=== PATIENT | male | born 1950 | race Caucasian/White ===

== ENCOUNTER 2016-11-29 09:07 | Emergency (ER) | payer OTHER ==
[~2016-11-29] VITALS: Ht 182.9 cm; Wt 124.0 kg
[~2016-11-29 09:07] MED LIST: AMLO5TAB96 PO; CYCL5TAB PO; GLYB1TAB51 PO; MELO15TA2 PO; MEVA40TA6 PO; NOVOLOGP2 SC; PRIN20TA2 PO; TRIA37.512 PO; VERA40TA PO
[2016-11-29 09:14] VITALS: BP 174/96; PULSE 85; RESP 16; TEMP 98.3; O2SAT 100
--- NOTE | 2016-11-29 09:16 | PD ---
HPI . back pain and numbness in legs x this am Chief Complaint: back pain and numbness in legs Time Seen by Provider: 09:10 Travel History International Travel<30 days: No Contact w/Intl Traveler<30days: No Traveled to known affect area: No History of Present Illness HPI 66-year-old male with past medical history of hypertension, hyperlipidemia, GERD , diabetes and chronic back pain who [facility] showing severe osteoarthritis and deteriorating disc here with complaints of low back pain and numbness in his legs. Patient tells me that occasionally he'll experience intermittent numbness in his lower extremities, however usually resolves within minutes. This time the numbness has been lingering. He tells me that he does not have any bowel or bladder dysfunction, however he is not certain if he needs to use the bathroom or not. Times daily and took one this morning. He is still rating his pain as 9/10 without radiation other than in the lower back. Patient was brought in via [facility] because he was unsteady at home. He tells me that he feels when he is walking he is likely going to fall. He has not fallen. PFSH Past Medical History Arthritis: Yes High Cholesterol: Yes Diabetes: Yes Hypertension: Yes Past Surgical History Appendectomy: Yes Tonsillectomy: Yes Social History Alcohol Use: Yes (occ) Tobacco Use: No Substance Use: No Allergies-Medications (Allergen,Severity, Reaction): Coded Allergies: Ebcdint-Ksu-Iaj Reductase Inhibitor (Verified Allergy, Severe, RHABDOMYLASIS, 11/29/16) Reported Meds & Prescriptions Reported Meds & Active Scripts Active Reported Aspirin 81 Low Dose (Aspirin) 81 Mg Chew 81 Mg PO DAILY Multiple Vitamin 1 Tab 1 Tab PO DAILY Vitamin D (Cholecalciferol) 400 Unit/Ml Drops 400 Units PO DAILY Ferrous Sulfate 325 Mg (65 Mg Iron) Tablet 325 Mg PO DAILY Saw [employer] 80 Mg Capsule Unknown Dose PO Q6HR Vitamin B Complex (B-Complex Vitamins) 1 Tab Unknown Dose PO DAILY Mobic (Meloxicam) 15 Mg Tab 15 Mg PO DAILY Baclofen 10 Mg Tab 10 Mg PO TID Tramadol Hydrochloride (Tramadol HCl) 50 Mg Tab 50 Mg PO Q6HR Eql Acid Adzing And Boring Machine Helper (Ranitidine HCl) 75 Mg Tab 150 Mg PO BID Omeprazole 40 Mg Cap 40 Mg PO HS Lisinopril 40 Mg Tab 40 Mg PO BID Novolin N Inj (Insulin Human NPH) 1,000 Unit/10 Ml Vial 17 Units SQ HS Hydrochlorothiazide 25 Mg Tab 25 Mg PO DAILY Hydralazine (Hydralazine HCl) 100 Mg Tab 10 Mg PO BID Take with meals Glipizide 10 Mg Tab 10 Mg PO BIDAC Take 30 minutes before a meal Amlodipine (Amlodipine Besylate) 10 Mg Tab 10 Mg PO DAILY Allopurinol 100 Mg Tab 100 Mg PO DAILY Review of Systems General / Constitutional: No: Fever Eyes: No: Visual changes HENT: No: Headaches Cardiovascular: No: Chest Pain or Discomfort Respiratory: No: Shortness of Breath Gastrointestinal: No: Abdominal Pain Genitourinary: No: Dysuria Musculoskeletal: Positive: Pain (lower back) Skin: No Rash Neurologic: Positive: Paresthesia, No: Weakness Psychiatric: No: Depression Endocrine: No: Polydipsia Hematologic/Lymphatic: No: Easy Bruising Physical Exam Narrative GENERAL: AAO x 3, no acute distress, Well-nourished, well-developed patient. obese SKIN: Warm and dry. No visible rashes or bruising. HEAD: Normocephalic and atraumatic. EYES: No scleral icterus. No injection or drainage. EOM intact, ENT: No nasal drainage noted. Mucous membranes pink. Airway patent. NECK: Supple, trachea midline. No JVD. no c spine tenderness CARDIOVASCULAR: Regular rate and rhythm without murmurs, gallops, or rubs. RESPIRATORY: Breath sounds equal bilaterally. No accessory muscle use. No rhonchi or rales. GASTROINTESTINAL: Abdomen soft, non-tender, nondistended. EXTREMITIES: No cyanosis or edema. BACK: No obvious deformity. 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 Data Data Last Documented VS Vital Signs Date Time Temp Pulse Resp B/P Pulse Ox O2 Delivery O2 Flow Rate FiO2 11/29/16 10:54 77 17 135/84 98 Room Air 11/29/16 09:14 98.3 Orders Mri L Spine W/O Contrast (11/29/16 09:17) Ketorolac Inj (Toradol Inj) (11/29/16 09:30) Complete Blood Count With Diff (11/29/16 09:17) Basic Metabolic Panel (Bmp) (11/29/16 09:17) Coag Profile (11/29/16 09:17) Urinalysis - C+S If Indicated (11/29/16 09:17) Labs Laboratory Tests Test 11/29/16 09:30 White Blood Count 7.5 TH/MM3 Red Blood Count 4.77 MIL/MM3 Hemoglobin 13.9 GM/DL Hematocrit 39.5 % Mean Corpuscular Volume 82.8 FL Mean Corpuscular Hemoglobin 29.1 PG Mean Corpuscular Hemoglobin 35.1 % Concent Red Cell Distribution Width 14.0 % Platelet Count 235 TH/MM3 Mean Platelet Volume 8.2 FL Neutrophils (%) (Auto) 61.8 % Lymphocytes (%) (Auto) 23.8 % Monocytes (%) (Auto) 8.9 % Eosinophils (%) (Auto) 4.8 % Basophils (%) (Auto) 0.7 % Neutrophils # (Auto) 4.6 TH/MM3 Lymphocytes # (Auto) 1.8 TH/MM3 Monocytes # (Auto) 0.7 TH/MM3 Eosinophils # (Auto) 0.4 TH/MM3 Basophils # (Auto) 0.1 TH/MM3 CBC Comment DIFF FINAL Differential Comment Prothrombin Time 10.7 SEC Prothromb Time International 1.0 RATIO Ratio Activated Partial 26.7 SEC Thromboplast Time Urine Color YELLOW Urine Turbidity CLEAR Urine pH 5.5 Urine Specific [place] 1.014 Urine Protein NEG mg/dL Urine Glucose (UA) NEG mg/dL Urine Ketones NEG mg/dL Urine Occult Blood NEG Urine Nitrite NEG Urine Bilirubin NEG Urine Urobilinogen LESS THAN 2.0 MG/DL Urine Leukocyte Esterase NEG Urine WBC 1 /hpf Microscopic Urinalysis Comment CULT NOT INDICATED Sodium Level 138 MEQ/L Potassium Level 3.9 MEQ/L Chloride Level 106 MEQ/L Carbon Dioxide Level 24.7 MEQ/L Anion Gap 7 MEQ/L Blood Urea Nitrogen 19 MG/DL Creatinine 1.29 MG/DL Estimat Glomerular Filtration 56 ML/MIN Rate Random Glucose 169 MG/DL Calcium Level 8.4 MG/DL [facility] Medical Decision Making Medical Screen Exam Complete: Yes Emergency Medical Condition: Yes Medical Record Reviewed: Yes Differential Diagnosis lumbar radiculopathy, spinal stenosis, less likely epidural abscess, cauda equina Narrative Course 66-year-old male here with complaints of lower back pain and numbness to his bilateral lower extremities. On examination he has some significant tenderness to the L-spine. He has had a recent MRI, however with significant findings today, we'll go and check another MRI. Provide him with a shot of Toradol here in the emergency department. Labs have been ordered in case emergent surgical indication on MRI. Last Impressions Lumbar Spine MRI 11/29/16 0917 Signed Impressions: Service Date/Time: Thursday, November 29, 2016 10:25 - CONCLUSION: 1. Protrusions at L2-3, L3-4 and L4-5 levels causing severe canal stenosis. 2. Diffuse facet arthropathy and scattered neural from narrowing as described above. Arnulfo Mccann MD Laboratory Tests Test 11/29/16 09:30 White Blood Count 7.5 TH/MM3 Red Blood Count 4.77 MIL/MM3 Hemoglobin 13.9 GM/DL Hematocrit 39.5 % Mean Corpuscular Volume 82.8 FL Mean Corpuscular Hemoglobin 29.1 PG Mean Corpuscular Hemoglobin 35.1 % Concent Red Cell Distribution Width 14.0 % Platelet Count 235 TH/MM3 Mean Platelet Volume 8.2 FL Neutrophils (%) (Auto) 61.8 % Lymphocytes (%) (Auto) 23.8 % Monocytes (%) (Auto) 8.9 % Eosinophils (%) (Auto) 4.8 % Basophils (%) (Auto) 0.7 % Neutrophils # (Auto) 4.6 TH/MM3 Lymphocytes # (Auto) 1.8 TH/MM3 Monocytes # (Auto) 0.7 TH/MM3 Eosinophils # (Auto) 0.4 TH/MM3 Basophils # (Auto) 0.1 TH/MM3 CBC Comment DIFF FINAL Differential Comment Prothrombin Time 10.7 SEC Prothromb Time International 1.0 RATIO Ratio Activated Partial 26.7 SEC Thromboplast Time Urine Color YELLOW Urine Turbidity CLEAR Urine pH 5.5 Urine Specific [place] 1.014 Urine Protein NEG mg/dL Urine Glucose (UA) NEG mg/dL Urine Ketones NEG mg/dL Urine Occult Blood NEG Urine Nitrite NEG Urine Bilirubin NEG Urine Urobilinogen LESS THAN 2.0 MG/DL Urine Leukocyte Esterase NEG Urine WBC 1 /hpf Microscopic Urinalysis Comment CULT NOT INDICATED Sodium Level 138 MEQ/L Potassium Level 3.9 MEQ/L Chloride Level 106 MEQ/L Carbon Dioxide Level 24.7 MEQ/L Anion Gap 7 MEQ/L Blood Urea Nitrogen 19 MG/DL Creatinine 1.29 MG/DL Estimat Glomerular Filtration 56 ML/MIN Rate Random Glucose 169 MG/DL Calcium Level 8.4 MG/DL Discussed the results with the patient. [facility]. I advised that he may have to proceed with surgical repair, but on outpatient basis. His numbness is improved, but still somewhat present. He has no bowel or bladder dysfunction. He uses a walker at home and his who is present says he is able to ambulate with walker. Patient also tells me he can. Resume home meds. Case discussed with my attending Dr. Ramos. We both agree on outpatient f/u. Patient verbalized understanding of instructions, questions were answered, and thanked me for their care. I advised them if their condition worsens, please return to the nearest emergency room for further care. Diagnosis Primary Impression: Spinal stenosis Qualified Code: M48.06 - Spinal stenosis of lumbar region Referrals: Neurosurgeon [place] [facility] Patient Instructions: General Instructions Additional Instructions: Resume your home medications as prescribed. Med/Other Pt SpecificInfo: No Change to Meds Disposition: 01 DISCHARGE HOME Condition: Stable Rosa Bacon Nov 29, 2016 09:16
[2016-11-29 09:17] VITALS: BP 174/96; PULSE 73; RESP 16; O2SAT 100
[2016-11-29] MEDS ORDERED: KETOROLAC TROMETHAMINE 60 MG/2 ML (IM) VIAL IM ONE (09:30)
[2016-11-29 09:42] LABS: BLOOD, URINE NEG (NEG); GLUCOSE,URINE NEG (NEG); KETONE, URINE NEG (NEG); NITRITE,URINE NEG (NEG); PH, URINE 5.5 (5.0-8.5); URINE COLOR YELLOW (YELLW/STRAW)
[2016-11-29] MEDS ORDERED: ASPI81CH3 PO (09:44)
[2016-11-29] MEDS ORDERED: AMLO10TA2 PO (09:44)
[2016-11-29] MEDS ORDERED: NOVONP2 SQ (09:44)
[2016-11-29] MEDS ORDERED: GLIP10TA6 PO (09:44)
[2016-11-29] MEDS ORDERED: ALLO100T PO (09:44)
[2016-11-29] MEDS ORDERED: HYDR25TA5 PO (09:44)
[2016-11-29] MEDS ORDERED: [UNRECOGNIZED DRUG - CODE] PO (09:44)
[2016-11-29] MEDS ORDERED: SAW80CAP2 PO (09:44)
[2016-11-29] MEDS ORDERED: HYDR-3801 PO (09:44)
[2016-11-29] MEDS ORDERED: CHOL400D2 PO (09:44)
[2016-11-29] MEDS ORDERED: TRAM-492 PO (09:44)
[2016-11-29] MEDS ORDERED: MULTTAB67 PO (09:44)
[2016-11-29] MEDS ORDERED: LISI40TA PO (09:44)
[2016-11-29] MEDS ORDERED: OMEP40CA2 PO (09:44)
[2016-11-29] MEDS ORDERED: MOBI15TA PO (09:44)
[2016-11-29] MEDS ORDERED: VITATAB11 PO (09:44)
[2016-11-29] MEDS ORDERED: BACL10TA PO (09:44)
[2016-11-29] MEDS ORDERED: FERR325T8 PO (09:44)
[2016-11-29 09:45] LABS: COMMENT (UR) CULT NOT INDICATED; CULTURE IF INDICATED CULT NOT INDICATED
[2016-11-29 09:46] LABS: AUTOMATED NEUTROPHIL # 4.6 TH/MM3 (1.8-7.7); BASOPHIL # 0.1 TH/MM3 (0-0.2); BASOPHIL % 0.7 % (0.0-2.0); EOSINOPHIL # 0.4 TH/MM3 (0-0.4); EOSINOPHIL % 4.8 % (0.0-4.0); HEMATOCRIT 39.5 % (39.0-51.0); HEMO FLAGS DIFF FINAL; LYMPH % 23.8 % (9.0-44.0); LYMPHOCYTE # 1.8 TH/MM3 (1.0-4.8); MEAN CELL VOLUME 82.8 FL (80.0-100.0); MEAN CORPUSCULAR HEMOGLOBIN 29.1 PG (27.0-34.0); MEAN CORPUSCULAR HGB CONC 35.1 % (32.0-36.0); MONO % 8.9 % (0.0-8.0); NEUT % 61.8 % (16.0-70.0); PLATELET COUNT 235 TH/MM3 (150-450); RED BLOOD COUNT 4.77 MIL/MM3 (4.50-5.90); WHITE BLOOD COUNT 7.5 TH/MM3 (4.0-11.0)
[2016-11-29 09:54] LABS: PROTHROMBIN TIME - PATIENT 10.7 SEC (9.8-11.6)
[2016-11-29 09:55] LABS: APTT (PATIENT) 26.7 SEC (24.3-30.1)
[2016-11-29 10:08] LABS: BICARBONATE 24.7 MEQ/L (21.0-32.0); POTASSIUM 3.9 MEQ/L (3.5-5.1)
[2016-11-29 10:54] VITALS: BP 135/84; PULSE 77; RESP 17; O2SAT 98
--- NOTE | 2016-11-29 10:57 | RADRPT ---
EXAM DATE/TIME: 11/29/2016 10:25 [place] COMPARISON: No previous studies available for comparison. INDICATIONS : Bilateral lower extremity weakness. MEDICAL HISTORY : Hypertension. Diabetes mellitus type 2. SURGICAL HISTORY : Tonsillectomy. Appendectomy. Right foot. ENCOUNTER: Initial ACUITY: 1 week PAIN SCORE: 5/10 LOCATION: [facility] TECHNIQUE: Multiplanar multisequence MRI of the lumbar spine was performed without contrast. FINDINGS: The most caudal appearing lumbar vertebra is numbered as L5. VERTEBRAE: Homogeneous signal. Normal alignment. CONUS: Normal level and configuration. Right renal cyst. T12-L1: The thecal sac has a normal diameter. No evidence of disc bulge or protrusion. The neural foramina are patent bilaterally. L1-L2: The thecal sac has a normal diameter. No evidence of disc bulge or protrusion. The neural foramina are patent bilaterally. L2-L3: Asymmetric right-sided moderate broad-based protrusion abuts the ventral thecal sac and in conjunctio n with marked facet arthropathy which contains fluid causes severe canal stenosis. Moderate narrowing of the right neural foramen. Left neural foramen is patent. L3-L4: Moderate broad-based protrusion in conjunction with moderate facet arthropathy causes severe canal st enosis. Severe bilateral neural foraminal narrowing greater on the left . L4-L5: Moderate broad-based protrusion in conjunction with moderate facet arthropathy causes severe canal st enosis. Severe bilateral neural foraminal narrowing greater on the left . L5-S1: Mild broad-based disc bulge without canal stenosis. Moderate facet arthropathy. The neural foramina are patent bilaterally. CONCLUSION: 1. Protrusions at L2-3, L3-4 and L4-5 levels causing severe canal stenosis. 2. Diffuse facet arthropathy and scattered neural from narrowing as described above. Arnulfo Mccann MD on November 29, 2016 at 10:52 Board Certified Radiologist. This report was verified electronically.
== END 2016-11-29 11:16 | disposition home or self-care (01) ==
LOC: NEPD 09:07
DX: M48.06 Spinal stenosis, lumbar region (principal); R20.9 Unspecified disturbances of skin sensation; E11.9 Type 2 diabetes mellitus without complications; I10 Essential (primary) hypertension; Z79.82 Long term (current) use of aspirin; Z79.4 Long term (current) use of insulin
CPT/HCPCS: 72148; 80048; 81001; 85025; 85610; 85730; 96372; 99285; J1885

== ENCOUNTER 2017-02-01 10:33 | Emergency (ER) | payer MEDICARE, OTHER ==
[~2017-02-01] VITALS: Ht 182.9 cm; Wt 122.0 kg
[~2017-02-01 10:33] MED LIST changes: +ALLO100T PO; +AMLO10TA2 PO; -AMLO5TAB96 PO; +ASPI81CH3 PO; +BACL10TA PO; +CHOL400D2 PO; -CYCL5TAB PO; +FERR325T8 PO; +GLIP10TA6 PO; -GLYB1TAB51 PO; +HYDR-3801 PO; +HYDR25TA5 PO; +LISI40TA PO; -MELO15TA2 PO; -MEVA40TA6 PO; +MOBI15TA PO; +MULTTAB67 PO; -NOVOLOGP2 SC; +NOVONP2 SQ; +OMEP40CA2 PO; -PRIN20TA2 PO; +SAW80CAP2 PO; +TRAM-492 PO; -TRIA37.512 PO; -VERA40TA PO; +VITATAB11 PO; +[UNRECOGNIZED DRUG - CODE] PO
[2017-02-01 10:44] VITALS: BP 134/80; PULSE 61; RESP 18; TEMP 98.4; O2SAT 97
[2017-02-01 10:47] VITALS: BP 134/80; PULSE 67; RESP 18; TEMP 98.4; O2SAT 95
[2017-02-01] MEDS ORDERED: predniSONE 20 MG TAB PO ONE (11:15)
[2017-02-01] MEDS ORDERED: PRED10PA2 PO (11:22)
--- NOTE | 2017-02-01 11:22 | PD ---
HPI . Bilateral leg numbness Chief Complaint: Neuro Symptoms/ Deficits Time Seen by Provider: 10:56 Travel History International Travel<30 days: No Contact w/Intl Traveler<30days: No Traveled to known affect area: No History of Present Illness HPI This patient presents with chief complaint of bilateral leg numbness. Chronic issue. He states that the current episode started during the night. He states that he got up and moved around a little bit and it got better. However, the symptoms recurred at about 8 or 8:30 and have not improved. He reports no known modifying factors. He states that he knows that his symptoms are due to this back. He rates his back pain as 5/10. This patient reports that he is followed at the [facility] for this. He states that they will not definitively treat his back pain until he loses some weight. PFSH Past Medical History Arthritis: Yes Cardiovascular Problems: Yes High Cholesterol: Yes Diabetes: Yes Patient Takes Glucophage: No Diminished Hearing: No GERD: Yes Hypertension: Yes Musculoskeletal: Yes (CHRONIC BACK PAIN) Pneumonia: Yes Past Surgical History Appendectomy: Yes Tonsillectomy: Yes Social History Alcohol Use: No Tobacco Use: No Substance Use: No Allergies-Medications (Allergen,Severity, Reaction): Coded Allergies: Lzazpfo-Gmh-Shg Reductase Inhibitor (Verified Allergy, Severe, RHABDOMYLASIS, 02/01/17) Reported Meds & Prescriptions Reported Meds & Active Scripts Active Reported Aspirin 81 Low Dose (Aspirin) 81 Mg Chew 81 Mg PO DAILY Multiple Vitamin 1 Tab 1 Tab PO DAILY Vitamin D (Cholecalciferol) 400 Unit/Ml Drops 400 Units PO DAILY Ferrous Sulfate 325 Mg (65 Mg Iron) Tablet 325 Mg PO DAILY Saw [place] 80 Mg Capsule Unknown Dose PO Q6HR Vitamin B Complex (B-Complex Vitamins) 1 Tab Unknown Dose PO DAILY Baclofen 10 Mg Tab 10 Mg PO TID Tramadol Hydrochloride (Tramadol HCl) 50 Mg Tab 50 Mg PO Q6HR Eql Acid Quality Assurance/R&D Lab Technician (Ranitidine HCl) 75 Mg Tab 150 Mg PO BID Omeprazole 40 Mg Cap 40 Mg PO HS Lisinopril 40 Mg Tab 20 Mg PO BID Novolin N Inj (Insulin Human NPH) 1,000 Unit/10 Ml Vial 17 Units SQ HS Hydrochlorothiazide 25 Mg Tab 25 Mg PO DAILY Hydralazine (Hydralazine HCl) 100 Mg Tab 10 Mg PO BID Take with meals Glipizide 10 Mg Tab 10 Mg PO BIDAC Take 30 minutes before a meal Amlodipine (Amlodipine Besylate) 10 Mg Tab 10 Mg PO DAILY Allopurinol 100 Mg Tab 100 Mg PO DAILY Review of Systems Except as stated in HPI: all other systems reviewed are Neg General / Constitutional: No: Fever, Chills Genitourinary: No: Incontinence Neurologic: Positive: Paresthesia, No: Weakness, Incontinence Physical Exam Narrative GENERAL: Awake and alert and in no acute distress. SKIN: Warm and dry. HEAD: Normocephalic/atraumatic. EYES: Pupils are equal. Extraocular movements are intact. NECK: Supple with full range of motion. CARDIOVASCULAR: Regular rate. RESPIRATORY: Nonlabored respirations. MUSCULOSKELETAL: Back has tenderness to percussion in the low back. Straight leg raise bilaterally is negative. NEUROLOGICAL: Nonfocal. PSYCHIATRIC: Appropriate mood and affect. Data Data Last Documented VS Vital Signs Date Time Temp Pulse Resp B/P (MAP) Pulse Ox O2 Delivery O2 Flow Rate FiO2 02/01/17 10:47 98.4 67 18 134/80 (98) 95 Room Air Orders Orders Prednisone (Deltasone) (02/01/17 11:15) MDM Medical Decision Making Medical Screen Exam Complete: Yes Emergency Medical Condition: Yes Medical Record Reviewed: Yes (patient was seen here in November with similar symptoms. He had an MRI done at that time which shows disc protrusion at L2/3, L3/4 and L4/5. This is causing severe canal stenosis. He also has diffuse facet arthropathy and scattered neural foraminal narrowing.) Differential Diagnosis My differential diagnosis of paresthesias includes but is not limited to anxiety , radiculopathy, peripheral neuropathy, peripheral vascular disease, compartment syndrome Narrative Course This patient presents with chronic paresthesias of his lower extremities. He has known degenerative disc disease and spinal stenosis. Therefore, the etiology of his symptoms is known. No further evaluation is necessary in the emergency department. He has no concerning signs or symptoms such as fever or incontinence. Diagnosis Primary Impression: Spinal stenosis Qualified Codes: M48.062 - Spinal stenosis, lumbar region with neurogenic claudication Patient Instructions: General Instructions, Lumbar Spinal Stenosis (DC) Med/Other Pt SpecificInfo: Prescription(s) given Scripts Prednisone (48) 10 mg tab Dose Pack (Prednisone (48) 10 mg tab Dose Pack) 10 Mg Dspk 10 MG PO DIRECTED for Inflammation, #1 DSPK 0 Refills Starting tomorrow. You have already had your dose for today. Prov: Jojo Torres MD 02/01/17 Disposition: 01 DISCHARGE HOME Condition: Stable Jojo Torres MD Feb 01, 2017 11:22
[2017-02-01 11:50] VITALS: BP 144/88; PULSE 64; RESP 18; O2SAT 99
== END 2017-02-01 12:09 | disposition home or self-care (01) ==
LOC: NEPD 10:33
DX: M48.062 Spinal stenosis, lumbar region with neurogenic claudication (principal); M51.36 Other intervertebral disc degeneration, lumbar region; E11.9 Type 2 diabetes mellitus without complications; I10 Essential (primary) hypertension; E78.00 Pure hypercholesterolemia, unspecified; Z79.4 Long term (current) use of insulin; Z87.39 Personal history of other diseases of the musculoskeletal system and connective tissue; Z86.79 Personal history of other diseases of the circulatory system; Z87.19 Personal history of other diseases of the digestive system
CPT/HCPCS: 99283; J7512

== ENCOUNTER 2017-12-04 08:30 | Inpatient (IN) ==
[~2017-12-04 08:30] MED LIST changes: -ALLO100T PO; -AMLO10TA2 PO; -ASPI81CH3 PO; -BACL10TA PO; +Bupivacaine/Epinephrine Inj 0.25% 50 ML Vial ONE; -CHOL400D2 PO; -FERR325T8 PO; -GLIP10TA6 PO; -HYDR-3801 PO; -HYDR25TA5 PO; -LISI40TA PO; -MOBI15TA PO; -MULTTAB67 PO; -NOVONP2 SQ; -OMEP40CA2 PO; -SAW80CAP2 PO; -TRAM-492 PO; -VITATAB11 PO; -[UNRECOGNIZED DRUG - CODE] PO; +methylPREDNISolone acetate 40 MG/ML VIAL ONE
[2017-12-04] MEDS ORDERED: Insulin NovoLIN Regular Correctional Sugar Inj SQ SCH (10:30)
[2017-12-04] MEDS ORDERED: Chlorhexidine Gluconate 2% 1 Pack (2 Cloths) TOPICAL SCH (10:30)
[2017-12-04] MEDS ORDERED: Metoprolol Tartrate 25 MG Tablet PO SCH (10:30)
[2017-12-04] MEDS ORDERED: Vancomycin Inj 1,000 MG in Sodium Chlor 0.9% Inj 250 ML IV.SIG SCH (11:00)
[2017-12-04] MEDS ORDERED: Sodium Chlor 0.9% Inj 500 ML IV.SIG SCH (11:00)
[2017-12-04] MEDS ORDERED: Sodium Chlor 0.9% Inj 500 ML IV.SIG ONE ×2 (12:00)
[2017-12-04] MEDS ORDERED: Phenylephrine/NS 1000 MCG/10ML Syringe IV.PUSH ONE (12:00)
[2017-12-04] MEDS ORDERED: Lidocaine PF 1% Inj 5 ML Syringe INFILTRATN ONE (12:00)
[2017-12-04] MEDS ORDERED: Glycopyrrolate Inj 1 MG/5 ML Syringe IV.PUSH ONE (12:00)
[2017-12-04] MEDS ORDERED: Propofol Inj 500 MG/50 ML Vial ONE (13:26)
[2017-12-04] MEDS ORDERED: Bisacodyl 10 MG Supp RECTAL PRN (14:14)
[2017-12-04] MEDS ORDERED: Naloxone Inj 0.4 MG/ML Vial IV.PUSH PRN (14:20)
[2017-12-04] MEDS ORDERED: Dextrose 50% in Water 50 ML Vial IV.PUSH PRN (14:20)
[2017-12-04] MEDS ORDERED: HYDROmorphone PF Inj 1 MG/ML Ampul IV.PUSH ONE (14:45)
[2017-12-04] MEDS: Gelatin Size 100 Topical Foam ONE (14:56)
[2017-12-04] MEDS: Thrombin Topical Soln 5,000 UNIT Vial TOPICAL ONE ×3 (14:56→22:26)
[2017-12-04] MEDS: Heparin - SQ 10,000 UNITS/ML Vial ONE ×2 (14:56→22:30)
[2017-12-04] MEDS ORDERED: Baclofen 10 MG Tablet PO PRN (15:00)
--- NOTE | 2017-12-04 20:31 | P.OP ---
Preoperative Diagnosis: Degenerative disk disease with severe facet arthropathy and spinal stenosis Postoperative Diagnosis: Degenerative disk disease with severe facet arthropathy and spinal stenosis Date of procedure: 12/04/17 Procedure: L2-3, L3-4, L4-L5 laminectomy, interbody arthrodhesis using PEEK cage and autologous bone graft, L2-3, L3-4, L4-L5 instrumental fixation using transpedicular screws and rods, L2-L3,L3-4, L4-L5 posterolateral fusion using autologous bone graft and demineralized bone matrix. Microsurgical dissection Anesthesia: GERONIMO Surgeon: Jatin Alfaro MD Roller Mill Operator: Janene hamilton Pathology: none sent Operation and Findings: INDICATIONS FOR THE SURGICAL PROCEDURE Mr White is a 67 year-old male who presented with intractable mechanical back pain and owen evidence of L3, L4 and L5 lower extremity radiculopathy and neurogenic claudication. He has failed maximum nonsurgical management including multiple modalities of conservative treatment as well as pain management interventions by an interventional pain specialist. A surgical decompression and arthrodhesis were indicated as a last resort. The [id number] details of the procedure, indications, alternatives, risks and potential complications were fully discussed with the patient. The patient fully understood. All the questions were answered. No guarantees were given. He voiced requesting the procedure and provided informed consents. He was offered the alternative of delaying the procedure and continuing with nonsurgical management. DETAILS OF THE SURGICAL PROCEDURE Prior to the procedure, the procedure, risks, and potential complications revisited with the patient. Placement of electrodes for intraoperative neurophysiological monitoring was completed. The patient was taken to the operative room, and following induction of general anesthesia, endotracheal intubation was performed. A Núñez catheter, bilateral SUMI hose and sequential compression devices were placed and kept throughout the procedure. The patient was positioned prone, over a Jaime table over a bolsters. All pressure in the preoperative surgical holding room points were carefully padded with eggcrate and gel mattress. The eyes were tapped shut after ointment was applied by the anesthesiologist to prevent corneal abrasion. A Zack hugger was placed over the exposed lower body to maintain control of the core body temperature. The electrophysiological team placed the needles and electrodes in their proper location and baseline SSEP's and motor evoked potentials were registered. The entrance to each pedicles was marked using a C arm. The lumbar region was prepped and draped in the usual sterile fashion. The surgical procedure was performed in several steps as follow: SURGICAL APPROACH Once the patient was positioned, a localizing cross-table lateral and AP x-ray was performed with a C-arm. Two paramedian small incisions were outlined on the skin approximately 3cm from the midline. The skin incisions were made with a # 10 blade. Small bleeders were controlled with the cautery. The dissection was then carried out into deeper planes and through the thoracolumbar fascia with a Bovie. The intermuscular septum was identified and the muscles were blunted dissected along the septum. The facets and transverse process of L2-3, L3-4, L4- L5 were exposed and the proper anatomical landmarks were identidied. A microsurgical self-retaining retractor was placed on the incision, and a localizing lateralizing cross-table x-ray was performed with an instrument underneath a lamina of the lumbar spine. INSTRUMENTAL FIXATION At this point in the procedure, placement of bilateral transpedicular screws was necessary for stabilization of the spine. Initially, the entry point for the screw was selected anatomically at the junction of the facet, with the transverse process, and the pars interarticularis at L2-L3, L3-4, L4,5. This was started with a Giamshetti needle, followed by the use of K wire. A tap was used to create the threads for the screws. Finally bilateral transpedicular screws were carefully placed bilaterally at L2, L3, L4, and L5 under fluoroscopic visualization. An appropriate purchase was achieved with all screws. The position of each screw was assessed anatomically with an AP, lateral , oblique Xrays. An intraoperative scan view of the spine was then performed using the iso-centric c-arm. Each screw was then assessed electrophysiologically stimulating each screw with a nerve stimulator. SURGICAL DECOMPRESSION There was significant mass effect with compression of the neural structures. In order to relieve neural compression, it was necessary to perform a decompressive laminectomy, with decompression of the spinal canal and bilateral lateral recesses. Note that the scope of such decompression was significantly more extensive than the minimal exposure necessary to perform an interbody fusion, as there was extreme facet arthropathy with severe degeneration of the disk spaces and stenosis cause by the hyperthrophic joint facets. At this point of the procedure the operative microscope was draped in the usual sterile fashion and brought to the field. The rest of the surgical procedure was performed using microdissection technique with the exception of the closure. Under the operating microscope, a decompressive laminectomy was carried out at L2-L3, L3-4, L4,5 as follow: The laminae, base of the spinous processes and facets were carefully drilled exposing the ligamentum flavum. The facets were abnormal with severe spondylolisthesis and gross mechanical instability. A large disk protusion was compressing the neural structures and exiting nerve roots. A near complete facetectomy was necessary resulting in further mechanical instability. The ligamentum flavum appeared hypertrophic, resulting on mass effect on the dorsal surface of the neural structures. The superior free border of the ligamentum flavum was elevated with a ligament dissector and the ligamentum flavum was removed with a 3 and 4 mm Kerrison forceps. The ligament was very adherent to the dural sac and during the dissection, ans extreme care was taken during the dissection. The exiting nerve roots were identified, and a wide foraminotomy was performed with a Kerrison in their trajectory towards the neural foramen. Epidural veins located laterally to the dural sac were coagulated with the bipolar cautery, and then incised using microscissors. Gentle medial retraction of the dural sac allowed me to expose the disc space for the discectomy. Upon completion of the discectomy, an excellent decompression of the neural structures was achieved. Increased motion was noted thorough the procedure, which was consistent with mechanical instability at L2-L3, L3-4, L4,5. INTERBODY ARTHRODHESIS In order to correct the narrowing of the disk space and maintain distraction of the space, and to achieve a solid interbody fusion, it was necessary the insertion of an interbody device into the disk space. Otherwise, the disk space would collapse, compromising the result of the surgical procedure. At this point of the procedure, the annulus fibrosus of the disk was carefully coagulated with a bipolar cautery and incised using an 11 bladed knife. Then, a microdiscectomy was carried out in a standard fashion using a combination of straight and up-biting pituitary forceps. A reverse angle curette was applied underneath the posterior longitudinal ligament, and used to push the disk fragments into the disk space, so they can be safely removed with a pituitary forceps. Once the discectomy was completed, it was necessary to decorticate the endplates, in order to eliminate the cartilaginous endplate and to expose healthy bone appropriate to perform the interbody fusion. The endplates at L2-L3 , L3-4, L4,5 were then thoroughly decorticated using increasing size bone blake and ring curets, eliminating the cartilaginous fragments from both, the superior and inferior endplates. A disk space distractor was applied to the pedicle screws and gentle distraction was applied. This maneuver was assisted by the use of a disk distractor. Increased motility was noted at the disk, which was consistent with instability due to facet arthropathy. Once a thorough preparation of the disk space was achieved, the disk space was irrigated with antibiotic solution, and the interbody fusion was performed by carefully impacting PPEK cages filled with autologous iliac crest bone graft. The use of several shoe impactors with different angulation, allowed me for an excellent, proper position of the interbody cages L2-L3, L3-4, L4,5. A solid position of the cage with good purchase was achieved. The position of the cages were assessed anatomically with a probe and radiologically with the C-arm. POSTEROLATERAL FUSION The posterolateral fusion is a critical component to the procedure, to prevent future fatigue and failure of the instrumental fixation. Initially, the transverse processes of the vertebral bodies, lateral surface of the facets and the lateral gutters of the spine were carefully cleaned, eliminating all soft tissue and muscle attachments. The area was then irrigated with a large amount of antibiotic solution. Subsequently, the transverse processes, lateral surface of the facets, and lateral gutters of the spine were thoroughly decorticated using the TPS drill with a 5mm cutting chris, exposing cancellous bone, in preparation for the posterolateral fusion. The incision was again irrigated with antibiotic solution. Then, the posterolateral fusion was then performed by carefully packing the lateral gutters of the spine at L2-L3, L3-4, L4,5 with autologous bone combined with demineralized bone matrix. I packed as much bone as possible. COMPLETION OF THE INSTRUMENTATION AND CLOSURE The rods were brought to the field, applied to all the screws, and the screw caps were sequentially applied. Compression was performed between the pedicle screws, and final tightening of the screws was completed using a torque wrench. The incision was again thoroughly irrigated with several liters of antibiotic solution, and hemostasis secured with the bipolar cautery. A Valsalva Maneuver performed by the anesthesiologist failed to show any evidence of cerebrospinal fluid leak or bleeding. A 7 mm Jaime-Hay drain was left in the epidural space and externalized through a separate stab incision. The incision was then closed in planes. 0 Vicryl was used in an interrupted fashion to close the thoracolumbar fascia and the superficial fascia. The subcutaneous tissue was then approximated using 3-0 Vicryl in an interrupted fashion. Special care was taken to avoid space. The skin was then closed with 4-0 Vicryl in a running, subcuticular fashion. Dermabond was applied to the skin. Each plane of closure was irrigated with antibiotic solution. At the end of the procedure the sponge, needle and instrument counts were all correct. Estimated blood loss was 250 cc. No blood transfusion was given. The entire procedure was performed using continuous electrophysiological monitoring of the somatosensorial evoked potentials and EMG. The patient received prophylactic antibiotics. The patient was then extubated and transferred to the recovery room in stable condition.
--- NOTE | 2017-12-04 21:09 | XR ---
EXAM DATE: 12/04/2017 9:03 PM EDT AGE/SEX: 67 years / Male INDICATIONS: L2/L3/L4/L5 Fusion. CLINICAL DATA: This is the patient's initial encounter. Patient reports that signs and symptoms have been present for 1 day and indicates a pain score of Nonresponsive. MEDICAL/SURGICAL HISTORY: None. None. COMPARISON: No prior exams available for comparison. FINDINGS: 3 images are recorded digitally in the operating room using C-arm during placement of 4 level transpe dicular screws. CONCLUSION: Intraoperative images. Electronically signed by: Eliot Murphy MD 12/04/2017 9:07 PM EDT
[2017-12-04] MEDS ORDERED: fentaNYL Citrate Inj 100 MCG/2 ML Ampul ONE (21:13)
[2017-12-04] MEDS ORDERED: Morphine Inj 4 MG/ML Vial ONE (21:13)
[2017-12-04] MEDS ORDERED: *morphine SULFATE 10 MG/ML PERIprocedure ONLY ONE ×2 (21:31→22:12)
[2017-12-04] MEDS: HYDROmorphone PCA Inj 6 MG/30 ML PCA.VIAL PCA PRN (21:34)
[2017-12-04] MEDS: hydrALAZINE 10 MG Tablet PO SCH (21:39)
[2017-12-04] MEDS: Senna/Docusate Sodium 8.6/50 MG Tablet PO SCH (21:39)
[2017-12-04] MEDS: Famotidine 20 MG Tablet PO SCH (21:39)
[2017-12-04] MEDS: Insulin NovoLOG Aspart Correctional Sugar Inj SQ SCH (22:00)
[2017-12-04] MEDS: Sod Chloride 0.9% Inj 1,000 ML IV.CONT SCH (22:30)
[2017-12-05] MEDS: HYDROmorphone PCA Inj 6 MG/30 ML PCA.VIAL PCA PRN ×2 (03:43→13:25)
[2017-12-05] MEDS: Insulin NovoLOG Aspart Correctional Sugar Inj SQ SCH ×4 (05:17→17:47)
[2017-12-05 06:00] LABS: Baso % (Auto) 0.1 % (0.0-2.0); Hematocrit 35.1 % (39.0-51.0); Hemoglobin 12.1 gm/dL (13.0-17.0); Lymph # (Auto) 0.6 th/mm3 (1.0-4.8); Lymph % (Auto) 3.5 % (9.0-44.0); Mean Corpuscular HGB Conc 34.4 % (32.0-36.0); Mean Corpuscular Hemoglobin 28.7 pg (27.0-34.0); Mean Corpuscular Volume 83.4 fL (80.0-100.0); Mean Platelet Volume 8.4 fL (7.0-11.0); Mono % (Auto) 5.7 % (0.0-8.0); Neut # (Auto) 16.1 th/mm3 (1.8-7.7); Neut % (Auto) 90.7 % (16.0-70.0); Platelet Count 249 th/mm3 (150-450); Red Blood Count 4.21 mil/mm3 (4.50-5.90); Red Cell Distribution Width 13.5 % (11.6-17.2); White Blood Count 17.8 th/mm3 (4.0-11.0)
[2017-12-05 06:18] LABS: Carbon Dioxide 25.1 meq/L (21.0-32.0); Potassium 4.3 meq/L (3.5-5.1)
[2017-12-05] MEDS ORDERED: Promethazine 25 MG Supp RECTAL PRN (08:46)
[2017-12-05] MEDS: Gelatin Size 100 Topical Foam ONE (09:25)
[2017-12-05] MEDS: Thrombin Topical Soln 5,000 UNIT Vial TOPICAL ONE (09:26)
[2017-12-05] MEDS: Lisinopril 20 MG Tablet PO SCH (10:25)
[2017-12-05] MEDS: Vitamin B Complex/Vitamin C Tablet PO SCH (10:26)
[2017-12-05] MEDS: glipiZIDE 10 MG Tablet PO SCH (10:26)
[2017-12-05] MEDS: Senna/Docusate Sodium 8.6/50 MG Tablet PO SCH ×2 (10:26→21:16)
[2017-12-05] MEDS: amLODIPine 10 MG Tablet PO SCH (10:27)
[2017-12-05] MEDS: hydroCHLOROthiazide 25 MG Tablet PO SCH (10:27)
[2017-12-05] MEDS: Pantoprazole Sodium 20 MG DR Tablet PO SCH (10:27)
[2017-12-05] MEDS: Famotidine 20 MG Tablet PO SCH ×2 (10:27→21:16)
[2017-12-05] MEDS: Allopurinol 100 MG Tablet PO SCH (10:27)
[2017-12-05] MEDS: hydrALAZINE 10 MG Tablet PO SCH ×2 (10:27→21:16)
[2017-12-05] MEDS: Ferrous Sulfate 325 MG Tablet PO SCH (10:27)
[2017-12-05] MEDS: Sod Chloride 0.9% Inj 1,000 ML IV.CONT SCH (11:54)
--- NOTE | 2017-12-05 12:26 | P.PNNS ---
Subjective Interval history: s/p L2-3, L3-4, L4-L5 laminectomy, interbody arthrodhesis using PEEK cage and autologous bone graft, L2-3, L3-4, L4-L5 instrumental fixation using transpedicular screws and rods, L2-L3,L3-4, L4-L5 posterolateral fusion using autologous bone graft and demineralized bone matrix. Microsurgical dissection POD 1: doing well, surgical pain controlled on WIC SITE COORDINATOR, radicular pain better with residual paresthesias, stable. nausea this am, better with zofran. Physical Exam Vital signs: Vital Signs 12/04/17 21:00 12/04/17 21:30 12/04/17 21:45 Temperature Pulse Rate 94 H 88 88 Respiratory Rate 16 14 Blood Pressure 147/64 H 154/67 H 149/65 H Pulse Oximetry 100 98 12/04/17 22:00 12/04/17 22:20 12/04/17 23:00 Temperature 97.8 F Pulse Rate 85 95 H Respiratory Rate 14 14 20 Blood Pressure 146/64 H 116/77 Pulse Oximetry 97 99 12/05/17 00:00 12/05/17 00:12 12/05/17 02:00 Temperature 97.3 F L Pulse Rate 74 94 H Respiratory Rate 15 20 Blood Pressure 129/78 Pulse Oximetry 97 97 12/05/17 02:04 12/05/17 04:00 12/05/17 04:13 Temperature 98.1 F Pulse Rate 82 Respiratory Rate 18 16 19 Blood Pressure 129/74 Pulse Oximetry 92 L 12/05/17 07:24 12/05/17 08:15 Temperature Pulse Rate Respiratory Rate 17 Blood Pressure Pulse Oximetry 97 Intake & Output 12/04/17 12/05/17 12/05/17 18:59 06:59 18:59 Intake Total 3040 / 3040 1100 / 1100 Output Total 2455 / 2455 Balance 585 / 585 1100 / 1100 Weight 113 kg 123 kg Intake: IV 1100 / 1100 NS + KCl 20 mEq Inj 1,000 ML @ 1000 / 1000 100 mls/hr IV.CONT .Q10H [facility] Rx #:[id number] Ancef Inj 1,000 MG In NS Inj 100 / 100 100 ML @ 200 mls/hr IV.SIG Q8H [facility] Rx#:[id number] Oral 240 / 240 Anesthesia Amount 2800 / 2800 Output: Estimated Blood Loss 650 / 650 Urine Amount (Catheter) 1550 / 1550 Indwelling Urethral Catheter 1550 / 1550 Wound Drainage 255 / 255 Medial Back 255 / 255 Other: Weight On Admission 113 kg Narrative: awake, alert speech fluent pupils equal, facial motor symmetric 5/5 LE strength plantars flexors b/l - Urinary Catheter Management Indwelling Urethral Catheter Cath placed during this visit: yes Reason for continuing: Hourly intake/output Insertion date: 12/04/17 Insertion time: 13:48 Assessment and Plan - Plan Impression: 67 y/o male s/p L2-3, L3-4, L4-L5 laminectomy, interbody arthrodhesis using PEEK cage and autologous bone graft, L2-3, L3-4, L4-L5 instrumental fixation using transpedicular screws and rods, L2-L3,L3-4, L4-L5 posterolateral fusion using autologous bone graft and demineralized bone matrix. Microsurgical dissection on 12/04/17 Plan: cont WIC SITE COORDINATOR for postoperative pain control IS every hour scds and teds, protonix PT, mobilize with TLSO clear to transfer out of [facility] to 6N case mgt for dc planning to SNF vs rehab
--- NOTE | 2017-12-05 12:44 | ECG ---
Date Performed: 12/05/2017 Time Performed: 10:57:50 PTAGE: 67 years EKG: Sinus rhythm . Leftward axis Left ventricular hypertrophy Abnormal ECG NO PREVIOUS TRACING DOCTOR: Roby Hough Interpretating Date/Time 12/05/2017 12:42:51
--- NOTE | 2017-12-05 13:47 | P.CONIM ---
History of Present Illness Primary Care Provider: Physician [facility] History of Present Illness: 67-year-old male with a history of hypertension, diabetes, GERD who is currently postop day 1 from lumbar laminectomy performed by neurosurgery. Patient says that pain is controlled. He did have some nausea and nonbloody vomiting this with anti-emetics. He says he is currently feeling all right. Denies any chest pain, shortness of breath, lightheadedness, dizziness. Review of Systems All other systems reviewed negative except as stated in HPI PMFSH - History History Provided By: Patient - Medical History Medical History: Medical History (Last Reviewed 12/05/17 @ 07:12 by Ariana Laura) Arthritis Back pain Diabetes GERD (gastroesophageal reflux disease) Herniated disc High cholesterol Hypertension Neck pain Skin cancer Spinal stenosis Wears glasses - Surgical History Surgical History: Surgical History (Last Reviewed 12/05/17 @ 07:12 by Ariana Laura) History of appendectomy History of arthroscopy of right knee History of tonsillectomy - Family History Family History: Family History (Last Updated 12/05/17 @ 13:41 by Esequiel Bradshaw MD) Father Renal cancer Mother Breast cancer - Tobacco History Second Hand Smoke Exposure: No Tobacco Use In Past 30 Days: No Smoking Status: Former smoker Tobacco Type: Cigarettes - Alcohol History How Often Do You Have a Drink Containing Alcohol: Monthly or less - Substance Use History Substance History: No History of Abuse - Travel History Recent Travel in the [place] Within the Last 8 Weeks: No Recent Travel Out of the Country Within the Last 8 Weeks: No - Immunization History Tetanus Immunization: <5 Years Hx Influenza Vaccine This Season: Yes Medications and Allergies Active Medications: Active Medications Hydrocodone Bitart/Acetaminophen ([place] 10/325) 2 tab PO Q4H PRN PRN Reason: PAIN SCALE 6 TO 10 Al Hydroxide/Mg Hydroxide (Milk Of Genevieve Lao) 30 ml PO Q12H PRN PRN Reason: Mild Constipation Albuterol (Albuterol Neb (Prn)) 2.5 mg NEB Q4HR NEB PRN PRN Reason: WHEEZING Allopurinol (Zyloprim) 100 mg PO DAILY [facility] Last Admin: 12/05/17 10:27 Dose: 100 mg Amlodipine Besylate (Norvasc) 10 mg PO DAILY [facility] Last Admin: 12/05/17 10:27 Dose: 10 mg Baclofen (Lioresal) 10 mg PO TID PRN PRN Reason: MUSCLE SPASM/PAIN Bisacodyl (Dulcolax Supp) 10 mg RECTAL DAILY PRN PRN Reason: SEVERE CONSITIPATION Chlorhexidine Gluconate (Chlorhexidine 2% Cloth) 3 pack TOPICAL [facility] Stop: 12/07/17 10:23 Last Admin: 12/04/17 10:16 Dose: 3 pack Dextrose (D50w Vial) 50 ml IV.PUSH UNSCH PRN PRN Reason: PER HYPOGLYCEMIA PROTOCOL Famotidine (Pepcid) 20 mg PO BID [facility] Last Admin: 12/05/17 10:27 Dose: 20 mg Ferrous Sulfate (Ferosul) 325 mg PO DAILY [facility] Last Admin: 12/05/17 10:27 Dose: 325 mg Glipizide (Glucotrol) 10 mg PO DAILY [facility] Last Admin: 12/05/17 10:26 Dose: 10 mg Glucagon (Glucagon Inj) 1 mg OTHER PRN PRN PRN Reason: for Hypoglycemia Protocol Hydralazine HCl (Apresoline) 10 mg PO BID [facility] Last Admin: 12/05/17 10:27 Dose: 10 mg Hydrochlorothiazide (Hydrodiuril) 25 mg PO DAILY [facility] Last Admin: 12/05/17 10:27 Dose: 25 mg Sodium Chloride (Ns Inj) 500 mls @ 30 mls/hr IV.SIG .Q10H [facility] Stop: 12/07/17 10:23 Lactated Ringer's (Lr 1000 Ml Inj) 1,000 mls @ 30 mls/hr IV.SIG .Q24H [facility] Stop: 12/07/17 10:23 Last Admin: 12/05/17 11:54 Dose: Not Given Sodium Chloride (Ns Inj) 1,000 mls @ 30 mls/hr IV.CONT .Q24H [facility] Last Admin: 12/05/17 11:54 Dose: Not Given Cefazolin Sodium 1,000 mg/ (Sodium Chloride) 100 mls @ 200 mls/hr IV.SIG Q8H [facility] Stop: 12/05/17 14:29 Last Infusion: 12/05/17 07:29 Dose: Infused Potassium Chloride/Sodium Chloride (Ns + Kcl 20 Meq Inj) 1,000 mls @ 100 mls/ hr IV.CONT .Q10H [facility] Last Admin: 08/25/18 10:28 Dose: Not Given Hydromorphone/Sodium Chloride (Dilaudid Fire Equipment Inspector Inj) 6 mg in 30 mls @ 0 mls/hr PROJECT PRODUCT MANAGER UNSCH PRN PRN Reason: per PROJECT PRODUCT MANAGER parameters Last Admin: 12/05/17 03:43 Dose: 0 mls/hr Insulin Aspart (Novolog Insulin Correctional Sugar Inj) 0 unit SQ Q6HR [facility]; Protocol Last Admin: 12/05/17 12:35 Dose: 4 unit Insulin Human NPH (Novolin N Inj) 15 units SQ QPM [facility] Last Admin: 12/04/17 22:27 Dose: Not Given Insulin Human Regular (Novolin R Correctional Sugar Inj) 0 units SQ [facility] ; Protocol Stop: 12/07/17 10:23 Lactulose (Lactulose Liq) 30 ml PO DAILY PRN PRN Reason: SEVERE CONSITIPATION Lisinopril (Prinivil) 40 mg PO DAILY [facility] Last Admin: 12/05/17 10:25 Dose: 40 mg Metoprolol Tartrate (Lopressor) 25 mg PO [facility] Stop: 12/07/17 10:23 Miscellaneous Information ([facility]) 1 each OTHER UNSCH PRN PRN Reason: SEE LABEL COMMENTS Stop: 12/05/17 21:04 Naloxone HCl (Narcan Inj) 0.4 mg IV.PUSH PRN PRN PRN Reason: SEE LABEL COMMENTS Ondansetron HCl (Zofran Odt) 4 mg PO Q6H PRN PRN Reason: NAUSEA OR VOMITING Ondansetron HCl (Zofran Inj) 4 mg IV.PUSH Q6H PRN PRN Reason: NAUSEA OR VOMITING Last Admin: 12/05/17 09:04 Dose: 4 mg PROJECT PRODUCT MANAGER Dosage Infused (Pha) (Fire Equipment Inspector Total Dose - Dilaudid) 1 each MISCELLANE Q8H [facility] Last Admin: 12/05/17 09:22 Dose: 1 each Pantoprazole Sodium (Protonix) 20 mg PO DAILY [facility] Last Admin: 12/05/17 10:27 Dose: 20 mg Povidone Iodine (Betadine 5% Antisepsis Kit) 1 applicatio EACH NARE [facility] Stop: 12/07/17 10:23 Last Admin: 12/04/17 11:00 Dose: 1 applicatio Promethazine HCl (Phenergan) 25 mg PO Q6H PRN PRN Reason: NAUSEA OR VOMITING Last Admin: 12/05/17 09:05 Dose: 25 mg Promethazine HCl (Phenergan Supp) 25 mg RECTAL Q6H PRN PRN Reason: NAUSEA OR VOMITING Senna/Docusate Sodium (Katerina-Colace) 1 tab PO BID [facility] Last Admin: 12/05/17 10:26 Dose: 1 tab Sennosides (Senokot) 17.2 mg PO Q12H PRN PRN Reason: Moderate Constipation Vitamin B Complex/Vitamin C (Allbee C) 1 tab PO DAILY [facility] Last Admin: 12/05/17 10:26 Dose: 1 tab Vitamin D (Vitamin D3) 1,000 unit PO DAILY [facility] Last Admin: 12/05/17 10:26 Dose: 1,000 unit Allergies Allergy/AdvReac Type Severity Reaction Status Date / Time Llcphli-Qkj-Rss Reductase Allergy Severe RHABDOMYLAS Verified 11/26/17 11:41 Inhibitor IS Home Medications Medication Instructions Recorded Confirmed Type allopurinol 100 mg PO DAILY 11/26/17 12/04/17 History amlodipine 10 mg PO DAILY 11/26/17 12/04/17 History aspirin [Aspirin Low Dose] 81 mg PO DAILY 11/26/17 11/26/17 History baclofen 10 mg PO TID PRN 11/26/17 12/04/17 History cholecalciferol (vitamin D3) 1,000 unit PO DAILY 11/26/17 12/04/17 History [Vitamin D3] ferrous sulfate [Iron (ferrous 325 mg PO DAILY 11/26/17 12/04/17 History sulfate)] glipizide 10 mg PO DAILY 11/26/17 12/04/17 History hydralazine 10 mg PO BID 11/26/17 12/04/17 History hydrochlorothiazide 25 mg PO DAILY 11/26/17 12/04/17 History insulin NPH isoph U-100 human 15 unit SUB-Q QPM 11/26/17 12/04/17 History [Humulin N NPH U-100 Insulin] lisinopril 40 mg PO DAILY 11/26/17 12/04/17 History meloxicam 15 mg PO DAILY 11/26/17 12/04/17 History omeprazole 20 mg PO DAILY 11/26/17 12/04/17 History ranitidine HCl 150 mg PO DAILY 11/26/17 12/04/17 History saw palmetto 320 mg PO DAILY 11/26/17 12/04/17 History tramadol 50 mg PO Q6H PRN 11/26/17 12/04/17 History vitamin B complex [B-Complex] 1 tab PO DAILY 11/26/17 12/04/17 History Exam Vital signs: Vital Signs 12/04/17 21:00 12/04/17 21:30 12/04/17 21:45 Temperature Pulse Rate 94 H 88 88 Respiratory Rate 16 14 Blood Pressure 147/64 H 154/67 H 149/65 H Pulse Oximetry 100 98 12/04/17 22:00 12/04/17 22:20 12/04/17 23:00 Temperature 97.8 F Pulse Rate 85 95 H Respiratory Rate 14 14 20 Blood Pressure 146/64 H 116/77 Pulse Oximetry 97 99 12/05/17 00:00 12/05/17 00:12 12/05/17 02:00 Temperature 97.3 F L Pulse Rate 74 94 H Respiratory Rate 15 20 Blood Pressure 129/78 Pulse Oximetry 97 97 12/05/17 02:04 12/05/17 04:00 12/05/17 04:13 Temperature 98.1 F Pulse Rate 82 Respiratory Rate 18 16 19 Blood Pressure 129/74 Pulse Oximetry 92 L 12/05/17 07:24 12/05/17 08:15 Temperature Pulse Rate Respiratory Rate 17 Blood Pressure Pulse Oximetry 97 Intake & Output 12/04/17 12/05/17 12/05/17 18:59 06:59 18:59 Intake Total 3040 / 3040 1100 / 1100 Output Total 2455 / 2455 Balance 585 / 585 1100 / 1100 Weight 113 kg 123 kg Intake: IV 1100 / 1100 NS + KCl 20 mEq Inj 1,000 ML @ 1000 / 1000 100 mls/hr IV.CONT .Q10H [facility] Rx #:[id number] Ancef Inj 1,000 MG In NS Inj 100 / 100 100 ML @ 200 mls/hr IV.SIG Q8H [facility] Rx#:[id number] Oral 240 / 240 Anesthesia Amount 2800 / 2800 Output: Estimated Blood Loss 650 / 650 Urine Amount (Catheter) 1550 / 1550 Indwelling Urethral Catheter 1550 / 1550 Wound Drainage 255 / 255 Medial Back 255 / 255 Other: Weight On Admission 113 kg Narrative: GENERAL: Patient sitting up in bed. Appears comfortable. Alert and oriented 3. SKIN: Warm and dry. HEAD: Atraumatic. Normocephalic. EYES: Pupils equal and round. No scleral icterus. No injection or drainage. ENT: No nasal bleeding or discharge. Mucous membranes pink and moist. NECK: Trachea midline. No JVD. CARDIOVASCULAR: Regular rate and rhythm. RESPIRATORY: No accessory muscle use. Clear to auscultation. Breath sounds equal bilaterally. GASTROINTESTINAL: Abdomen soft, non-tender, nondistended. Hepatic and splenic margins not palpable. MUSCULOSKELETAL: Extremities without clubbing, cyanosis, or edema. No obvious deformities. NEUROLOGICAL: Awake and alert. No obvious cranial nerve deficits. Motor grossly within normal limits. Five out of 5 muscle strength in the arms and legs. Normal speech. PSYCHIATRIC: Appropriate mood and affect; insight and judgment normal. Results - Labs CBC & Chem 7: 12/05/17 05:00 12/05/17 05:00 Labs: Laboratory Results - last 24 hr 12/04/17 12/05/17 12/05/17 21:54 00:23 03:00 WBC RBC Hgb Hct MCV MCH MCHC RDW Plt Count MPV Neut % (Auto) Lymph % (Auto) [place] % (Auto) Eos % (Auto) Baso % (Auto) Neut # (Auto) Lymph # (Auto) [place] # (Auto) Eos # (Auto) Baso # (Auto) WBC Differential Differential Comment Sodium Potassium Chloride Carbon Dioxide Anion Gap BUN Creatinine Estimated GFR POC Glucose 220 H 224 H Random Glucose Calcium Nasal Screen MRSA (PCR) Not detected 12/05/17 12/05/17 12/05/17 05:00 05:00 05:04 WBC 17.8 H RBC 4.21 L Hgb 12.1 L Hct 35.1 L MCV 83.4 MCH 28.7 MCHC 34.4 RDW 13.5 Plt Count 249 MPV 8.4 Neut % (Auto) 90.7 H Lymph % (Auto) 3.5 L [place] % (Auto) 5.7 Eos % (Auto) 0.0 Baso % (Auto) 0.1 Neut # (Auto) 16.1 H Lymph # (Auto) 0.6 L [place] # (Auto) 1.0 H Eos # (Auto) 0.0 Baso # (Auto) 0.0 WBC Differential . Differential Comment Auto diff final Sodium 140 Potassium 4.3 Chloride 107 Carbon Dioxide 25.1 Anion Gap 8 BUN 26 H Creatinine 1.30 Estimated GFR 55 L POC Glucose 219 H Random Glucose 223 H Calcium 8.0 L Nasal Screen MRSA (PCR) 12/05/17 12:04 WBC RBC Hgb Hct MCV MCH MCHC RDW Plt Count MPV Neut % (Auto) Lymph % (Auto) [place] % (Auto) Eos % (Auto) Baso % (Auto) Neut # (Auto) Lymph # (Auto) [place] # (Auto) Eos # (Auto) Baso # (Auto) WBC Differential Differential Comment Sodium Potassium Chloride Carbon Dioxide Anion Gap BUN Creatinine Estimated GFR POC Glucose 167 H Random Glucose Calcium Nasal Screen MRSA (PCR) - Imaging Impressions Lumbar Spine X-Ray 12/04/17 00:00 CONCLUSION: Intraoperative images. Assessment and Plan - Plan //Postop s/p L2-3, L3-4, L4-L5 laminectomy, interbody arthrodhesis using PEEK cage and autologous bone graft, L2-3, L3-4, L4-L5 instrumental fixation using transpedicular screws and rods, L2-L3,L3-4, L4-L5 posterolateral fusion using autologous bone graft and demineralized bone matrix. Microsurgical dissection = Performed on 12/04 Postsurgical management, pain management as per surgical service. //Postoperative nausea. Likely secondary to pain meds. Antiemetics ordered with improvement. We will continue to monitor. //Leukocytosis. 17. Postop day 1. Likely reactive. We will monitor for signs of infection. //Diabetes mellitus. Diabetic diet and insulin sliding scale. Continue glipizide. Glucose acceptable. Continue to monitor. //Hypertension. Chronic. Blood pressure acceptable. Continue home meds. Aspirin held by primary team. //GERD. Continue PPI. Discharge Planning: SNIF versus rehab. Case management following. As per surgical service.
[2017-12-05] MEDS: Sod Chloride 0.9% Inj 1,000 ML IV.SIG SCH ×2 (14:00→23:22)
[2017-12-06] MEDS: Insulin NovoLOG Aspart Correctional Sugar Inj SQ SCH ×5 (00:04→23:25)
[2017-12-06] MEDS: HYDROmorphone PCA Inj 6 MG/30 ML PCA.VIAL PCA PRN (00:19)
[2017-12-06 06:42] LABS: Baso # (Auto) 0.1 th/mm3 (0.0-0.2); Baso % (Auto) 0.5 % (0.0-2.0); Eos % (Auto) 0.2 % (0.0-4.0); Hematocrit 32.7 % (39.0-51.0); Hemoglobin 11.1 gm/dL (13.0-17.0); Lymph % (Auto) 12.4 % (9.0-44.0); Mean Corpuscular HGB Conc 33.9 % (32.0-36.0); Mean Corpuscular Hemoglobin 28.9 pg (27.0-34.0); Mean Corpuscular Volume 85.3 fL (80.0-100.0); Mean Platelet Volume 8.5 fL (7.0-11.0); Mono # (Auto) 1.6 th/mm3 (0.0-0.9); Neut # (Auto) 12.6 th/mm3 (1.8-7.7); Neut % (Auto) 76.9 % (16.0-70.0); Platelet Count 222 th/mm3 (150-450); Red Blood Count 3.84 mil/mm3 (4.50-5.90); Red Cell Distribution Width 13.7 % (11.6-17.2); White Blood Count 16.4 th/mm3 (4.0-11.0)
[2017-12-06 07:04] LABS: Albumin 2.8 g/dL (3.4-5.0); Calcium 7.8 mg/dL (8.5-10.1); Carbon Dioxide 26.1 meq/L (21.0-32.0); Magnesium 1.8 mg/dL (1.5-2.5); Phosphorus 2.1 mg/dL (2.5-4.9); Potassium 3.8 meq/L (3.5-5.1)
[2017-12-06] MEDS: glipiZIDE 10 MG Tablet PO SCH (08:07)
[2017-12-06] MEDS: Vitamin B Complex/Vitamin C Tablet PO SCH (08:07)
[2017-12-06] MEDS: Lisinopril 20 MG Tablet PO SCH (08:07)
[2017-12-06] MEDS: hydrALAZINE 10 MG Tablet PO SCH ×2 (08:08→21:35)
[2017-12-06] MEDS: amLODIPine 10 MG Tablet PO SCH (08:08)
[2017-12-06] MEDS: Pantoprazole Sodium 20 MG DR Tablet PO SCH (08:08)
[2017-12-06] MEDS: Senna/Docusate Sodium 8.6/50 MG Tablet PO SCH ×2 (08:08→21:35)
[2017-12-06] MEDS: Ferrous Sulfate 325 MG Tablet PO SCH (08:08)
[2017-12-06] MEDS: Allopurinol 100 MG Tablet PO SCH (08:08)
[2017-12-06] MEDS: hydroCHLOROthiazide 25 MG Tablet PO SCH (09:22)
[2017-12-06] MEDS: Famotidine 20 MG Tablet PO SCH ×2 (09:25→21:35)
--- NOTE | 2017-12-06 10:40 | P.PNNS ---
Subjective Interval history: 12/06: surgical pain controlled, feeling well, stable residual paresthesias in legs. Physical Exam Vital signs: Vital Signs 12/05/17 12:00 12/05/17 13:54 12/05/17 16:00 Temperature 98.2 F 98.3 F Pulse Rate 86 108 H Respiratory Rate 16 15 18 Blood Pressure 138/79 151/84 H Pulse Oximetry 97 96 12/05/17 19:04 12/05/17 19:29 12/06/17 00:00 Temperature 98.9 F 98.4 F Pulse Rate 89 99 H Respiratory Rate 16 18 18 Blood Pressure 125/73 133/81 Pulse Oximetry 97 96 12/06/17 00:03 12/06/17 03:34 12/06/17 04:40 Temperature 98.5 F Pulse Rate 103 H Respiratory Rate 16 18 18 Blood Pressure 135/77 Pulse Oximetry 97 12/06/17 08:00 Temperature 97.5 F L Pulse Rate 102 H Respiratory Rate 19 Blood Pressure 146/74 H Pulse Oximetry 96 Intake & Output 12/05/17 12/06/17 12/06/17 18:59 06:59 18:59 Intake Total 3220 / 3220 1680 / 1680 1000 / 1000 Output Total 1530 / 1530 1750 / 1750 Balance 1690 / 1690 -70 / -70 1000 / 1000 Weight 123 kg Intake: IV 2500 / 2500 1000 / 1000 1000 / 1000 NS + KCl 20 mEq Inj 1,000 ML @ 1400 / 1400 100 mls/hr IV.CONT .Q10H [facility] Rx #:[id number] LR 1000 mL Inj 1,000 ML @ 30 1000 / 1000 mls/hr IV.SIG .Q24H [facility] Rx#: [id number] NS Inj 1,000 ML @ 100 mls/hr IV 1000 / 1000 1000 / 1000 .SIG .Q10H [facility] Rx#:[id number] Ancef Inj 1,000 MG In NS Inj 100 / 100 100 ML @ 200 mls/hr IV.SIG Q8H [facility] Rx#:[id number] Oral 720 / 720 680 / 680 Output: Urine 1750 / 1750 Urine Amount (Catheter) 1300 / 1300 Indwelling Urethral Catheter 1300 / 1300 Wound Drainage 230 / 230 Medial Back 230 / 230 Other: Date of Last Bowel Movement 12/04/17 # Bowel Movements 0 Narrative: awake, alert speech fluent pupils equal, facial motor symmetric 5/5 LE strength plantars flexors b/l LOLA drain in place with 230 cc output overnight - Urinary Catheter Management Indwelling Urethral Catheter Cath placed during this visit: yes Reason for continuing: Hourly intake/output Insertion date: 12/04/17 Insertion time: 13:48 Assessment and Plan - Plan Impression: 67 y/o male s/p L2-3, L3-4, L4-L5 laminectomy, interbody arthrodhesis using PEEK cage and autologous bone graft, L2-3, L3-4, L4-L5 instrumental fixation using transpedicular screws and rods, L2-L3,L3-4, L4-L5 posterolateral fusion using autologous bone graft and demineralized bone matrix. Microsurgical dissection on 12/04/17 Plan: cont COURT BAILIFF for postoperative pain control today, dc tomorrow morning IS every hour scds and teds, protonix, start sq lovenox PT, mobilize with TLSO keep LOLA drain today, dc tomorrow case mgt for dc planning to [place] [facility], anticipate dc tomorrow
--- NOTE | 2017-12-06 10:53 | P.PN ---
Subjective Interval history: Follow-up visit for laminectomy, diabetes mellitus, hypertension. Patient is seen and examined resting in bed comfortably and in no acute distress with visitors at bedside. He denies any fevers, chills, nausea, vomiting, shortness of breath, cough or chest pain. He reports his pain is well controlled. Currently on a RING SORTER pump, discussed with nurse reports patient will likely be discharged to rehab center. Physical Exam Vital signs: Vital Signs 12/05/17 12:00 12/05/17 13:54 12/05/17 16:00 Temperature 98.2 F 98.3 F Pulse Rate 86 108 H Respiratory Rate 16 15 18 Blood Pressure 138/79 151/84 H Pulse Oximetry 97 96 12/05/17 19:04 12/05/17 19:29 12/06/17 00:00 Temperature 98.9 F 98.4 F Pulse Rate 89 99 H Respiratory Rate 16 18 18 Blood Pressure 125/73 133/81 Pulse Oximetry 97 96 12/06/17 00:03 12/06/17 03:34 12/06/17 04:40 Temperature 98.5 F Pulse Rate 103 H Respiratory Rate 16 18 18 Blood Pressure 135/77 Pulse Oximetry 97 12/06/17 08:00 Temperature 97.5 F L Pulse Rate 102 H Respiratory Rate 19 Blood Pressure 146/74 H Pulse Oximetry 96 Intake & Output 12/05/17 12/06/17 12/06/17 18:59 06:59 18:59 Intake Total 3220 / 3220 1680 / 1680 1000 / 1000 Output Total 1530 / 1530 1750 / 1750 Balance 1690 / 1690 -70 / -70 1000 / 1000 Weight 123 kg Intake: IV 2500 / 2500 1000 / 1000 1000 / 1000 NS + KCl 20 mEq Inj 1,000 ML @ 1400 / 1400 100 mls/hr IV.CONT .Q10H [facility] Rx #:[id number] LR 1000 mL Inj 1,000 ML @ 30 1000 / 1000 mls/hr IV.SIG .Q24H [facility] Rx#: [id number] NS Inj 1,000 ML @ 100 mls/hr IV 1000 / 1000 1000 / 1000 .SIG .Q10H [facility] Rx#:[id number] Ancef Inj 1,000 MG In NS Inj 100 / 100 100 ML @ 200 mls/hr IV.SIG Q8H [facility] Rx#:[id number] Oral 720 / 720 680 / 680 Output: Urine 1750 / 1750 Urine Amount (Catheter) 1300 / 1300 Indwelling Urethral Catheter 1300 / 1300 Wound Drainage 230 / 230 Medial Back 230 / 230 Other: Date of Last Bowel Movement 12/04/17 # Bowel Movements 0 Narrative: GENERAL: Well-developed, well-nourished male in no acute distress. SKIN: Warm and dry. HEAD: Atraumatic. Normocephalic. EYES: Pupils equal and round. No scleral icterus. No injection or drainage. ENT: No nasal bleeding or discharge. Mucous membranes pink and moist. NECK: Trachea midline. CARDIOVASCULAR: Regular rate and rhythm. RESPIRATORY: No accessory muscle use. Clear to auscultation. Breath sounds equal bilaterally. GASTROINTESTINAL: Abdomen soft, non-tender, nondistended. + Bowel sounds. MUSCULOSKELETAL: Extremities without clubbing, cyanosis, or edema. No obvious deformities. Lower back dressing dry and intact, LOLA drain noted with about 100 mL's of serosanguineous drainage. NEUROLOGICAL: Awake and alert, oriented 3. No obvious cranial nerve deficits. Motor grossly within normal limits. Normal speech. PSYCHIATRIC: Appropriate mood and affect; insight and judgment normal. - Urinary Catheter Management Indwelling Urethral Catheter Cath placed during this visit: yes Reason for continuing: Hourly intake/output Insertion date: 12/04/17 Insertion time: 13:48 Results - Labs CBC & Chem 7: 12/06/17 06:21 12/06/17 06:21 Laboratory Results - last 24 hr 12/05/17 12/05/17 12/06/17 12:04 17:32 06:00 WBC RBC Hgb Hct MCV MCH MCHC RDW Plt Count MPV Neut % (Auto) Lymph % (Auto) [place] % (Auto) Eos % (Auto) Baso % (Auto) Neut # (Auto) Lymph # (Auto) [place] # (Auto) Eos # (Auto) Baso # (Auto) WBC Differential Differential Comment Sodium Potassium Chloride Carbon Dioxide Anion Gap BUN Creatinine Estimated GFR POC Glucose 167 H 93 179 H Random Glucose Calcium Phosphorus Magnesium Albumin 12/06/17 12/06/17 06:21 06:21 WBC 16.4 H RBC 3.84 L Hgb 11.1 L Hct 32.7 L MCV 85.3 MCH 28.9 MCHC 33.9 RDW 13.7 Plt Count 222 MPV 8.5 Neut % (Auto) 76.9 H Lymph % (Auto) 12.4 [place] % (Auto) 10.0 H Eos % (Auto) 0.2 Baso % (Auto) 0.5 Neut # (Auto) 12.6 H Lymph # (Auto) 2.0 [place] # (Auto) 1.6 H Eos # (Auto) 0.0 Baso # (Auto) 0.1 WBC Differential . Differential Comment Auto diff final Sodium 140 Potassium 3.8 Chloride 106 Carbon Dioxide 26.1 Anion Gap 8 BUN 26 H Creatinine 1.47 H Estimated GFR 48 L POC Glucose Random Glucose 173 H Calcium 7.8 L Phosphorus 2.1 L Magnesium 1.8 Albumin 2.8 L Assessment and Plan - Plan Postop s/p L2-3, L3-4, L4-L5 laminectomy, interbody arthrodhesis using PEEK cage and autologous bone graft, L2-3, L3-4, L4-L5 instrumental fixation using transpedicular screws and rods, L2-L3,L3-4, L4-L5 posterolateral fusion using autologous bone graft and demineralized bone matrix. Microsurgical dissection = Performed on 12/04 Postsurgical management, pain management as per surgical service. -Pain so far well controlled. - remove Núñez catheter today. //Postoperative nausea, resolved //Leukocytosis. Likely reactive, this morning 16.4, patient afebrile with no reports of increased pain or dysuria. //Diabetes mellitus. Diabetic diet and insulin sliding scale. Continue glipizide. Glucose acceptable. Continue to monitor. //Hypertension. Chronic. Blood pressure acceptable. Continue home meds. Aspirin held by primary team. //Increase in creatinine. Coverage oral hydration. //GERD. Continue PPI. DVT prophylaxissubcu Lovenox Discussed Condition With: Patient, RN. Discharge Planning: it support manager arranging discharge. Possibly [place] [facility]
[2017-12-06] MEDS: Sod Chloride 0.9% Inj 1,000 ML IV.SIG SCH ×2 (12:09→23:52)
[2017-12-06] MEDS: Enoxaparin Inj 40 MG/0.4 ML Syringe SQ SCH (12:39)
[2017-12-06] MEDS: Sod Chloride 0.9% Inj 1,000 ML IV.CONT SCH (12:40)
[2017-12-07] MEDS: Insulin NovoLOG Aspart Correctional Sugar Inj SQ SCH (06:32)
[2017-12-07] MEDS: Sod Chloride 0.9% Inj 1,000 ML IV.SIG SCH (06:32)
[2017-12-07] MEDS: Enoxaparin Inj 40 MG/0.4 ML Syringe SQ SCH (09:13)
[2017-12-07] MEDS: Pantoprazole Sodium 20 MG DR Tablet PO SCH (09:13)
[2017-12-07] MEDS: Famotidine 20 MG Tablet PO SCH (09:14)
[2017-12-07] MEDS: Lisinopril 20 MG Tablet PO SCH (09:14)
[2017-12-07] MEDS: Allopurinol 100 MG Tablet PO SCH (09:14)
[2017-12-07] MEDS: Vitamin B Complex/Vitamin C Tablet PO SCH (09:15)
[2017-12-07] MEDS: amLODIPine 10 MG Tablet PO SCH (09:15)
[2017-12-07] MEDS: glipiZIDE 10 MG Tablet PO SCH (09:15)
[2017-12-07] MEDS: Senna/Docusate Sodium 8.6/50 MG Tablet PO SCH (09:15)
[2017-12-07] MEDS: Ferrous Sulfate 325 MG Tablet PO SCH (09:15)
[2017-12-07] MEDS: hydroCHLOROthiazide 25 MG Tablet PO SCH (09:15)
[2017-12-07] MEDS: hydrALAZINE 10 MG Tablet PO SCH (09:15)
--- NOTE | 2017-12-07 09:19 | P.PN ---
Subjective Interval history: Follow-up visit for laminectomy, diabetes mellitus, hypertension. Patient seen and examined resting in bed comfortably in no acute distress. He denies any fevers, chills, nausea, vomiting, diarrhea, cough, shortness of breath or chest pain. Reports that he may be going to rehab today, renal case manager working on arrangements as these have to be approved from the OR first. Patient reports that his back drain is to be removed today. He denies any leg numbness or weakness, denies saddle anesthesia, fecal or urinary incontinence. States he did not get much sleep overnight, feels it may be related to the fact that he is in the hospital. Voiding without any dysuria or hesitancy. Reports he has yet to have a bowel movement, + flatus. Physical Exam Vital signs: Vital Signs 12/06/17 12:00 12/06/17 16:00 12/06/17 20:29 Temperature 97.4 F L 99.2 F 97.8 F Pulse Rate 120 H 118 H 115 H Respiratory Rate 19 18 18 Blood Pressure 152/72 H 130/70 134/68 Pulse Oximetry 96 96 97 12/06/17 23:19 12/07/17 03:20 12/07/17 06:33 Temperature 98.6 F 98.0 F Pulse Rate 106 H 101 H Respiratory Rate 18 18 18 Blood Pressure 126/77 126/77 Pulse Oximetry 97 98 12/07/17 08:00 Temperature 98.6 F Pulse Rate 101 H Respiratory Rate 17 Blood Pressure 127/77 Pulse Oximetry 95 Intake & Output 12/06/17 12/07/17 12/07/17 18:59 06:59 18:59 Intake Total 1650 / 1650 480 / 480 Output Total 105 / 105 770 / 770 Balance 1545 / 1545 -290 / -290 Weight 123 kg Intake: IV 1000 / 1000 NS Inj 1,000 ML @ 100 mls/hr IV 1000 / 1000 .SIG .Q10H WHITLEY Rx#:[id number] Oral 650 / 650 480 / 480 Output: Urine 650 / 650 Wound Drainage 105 / 105 120 / 120 Medial Back 105 / 105 120 / 120 Other: Date of Last Bowel Movement 12/03/17 # Bowel Movements 0 Narrative: GENERAL: Well-developed, well-nourished male in no acute distress. SKIN: Warm and dry. HEAD: Atraumatic. Normocephalic. EYES: Pupils equal and round. No scleral icterus. No injection or drainage. ENT: No nasal bleeding or discharge. Mucous membranes pink and moist. NECK: Trachea midline. CARDIOVASCULAR: Regular rate and rhythm. RESPIRATORY: No accessory muscle use. Clear to auscultation. Breath sounds equal bilaterally. GASTROINTESTINAL: Abdomen soft, non-tender, nondistended. + Bowel sounds. MUSCULOSKELETAL: Extremities without clubbing, cyanosis, or edema. No obvious deformities. Lower back dressing dry and intact, LOLA drain noted with serosanguineous drainage. NEUROLOGICAL: Awake and alert, oriented 3. No obvious cranial nerve deficits. Motor grossly within normal limits. Normal speech. PSYCHIATRIC: Appropriate mood and affect; insight and judgment normal. - Urinary Catheter Management Indwelling Urethral Catheter Cath placed during this visit: yes, but has since been removed by the nurse Reason for continuing: Hourly intake/output Insertion date: 12/04/17 Insertion time: 13:48 Removal date: 12/06/17 Removal time: 10:55 Results - Labs CBC & Chem 7: 12/06/17 06:21 12/06/17 06:21 Laboratory Results - last 24 hr 12/06/17 12/06/17 12/06/17 12:01 17:25 23:18 POC Glucose 190 H 162 H 167 H 12/07/17 06:02 POC Glucose 159 H Assessment and Plan - Plan Postop s/p L2-3, L3-4, L4-L5 laminectomy, interbody arthrodhesis using PEEK cage and autologous bone graft, L2-3, L3-4, L4-L5 instrumental fixation using transpedicular screws and rods, L2-L3,L3-4, L4-L5 posterolateral fusion using autologous bone graft and demineralized bone matrix. Microsurgical dissection = Performed on 12/04 Postsurgical management, pain management as per surgical service. -Pain so far well controlled. -Núñez removed, voiding without issues. //Postoperative nausea, resolved //Leukocytosis. Likely reactive, patient afebrile with no reports of increased pain or dysuria. //Diabetes mellitus. Diabetic diet and insulin sliding scale. Continue glipizide. Glucose acceptable. Continue to monitor. //Hypertension. Chronic. Blood pressure acceptable. Continue home meds. Aspirin held by primary team. -Mild tachycardia noted with heart rate in the 101-106 range, likely related to pain. //Increase in creatinine. Coverage oral hydration. //GERD. Continue PPI. DVT prophylaxissubcu Lovenox Discussed Condition With: Patient and RN. Discharge Planning: manager [employer] arranging discharge. Possibly [facility], pending discharge by neurosurgery.
--- NOTE | 2017-12-07 12:20 | P.DS ---
Date of admission: 12/04/17 09:52 Primary care physician: [facility] Brief History from admission: Mr White is a 67 year-old male who presented with intractable mechanical back pain and owen evidence of L3, L4 and L5 lower extremity radiculopathy and neurogenic claudication. He has failed maximum nonsurgical management including multiple modalities of conservative treatment as well as pain management interventions by an interventional pain specialist. A surgical decompression and arthrodhesis were indicated as a last resort. DS: Medications - Discharge Medications Prescriptions: hydrocodone-acetaminophen 2 tab PO Q4-6H PRN 3 Days #15 tab PRN Reason: Pain Scale 6 To 10 DS: Summary Hospital Course: Mr. White underwent a L2-3, L3-4, L4-L5 laminectomy, interbody arthrodhesis using PEEK cage and autologous bone graft, L2-3, L3-4, L4-L5 instrumental fixation using transpedicular screws and rods, L2-L3,L3-4, L4-L5 posterolateral fusion using autologous bone graft and demineralized bone matrix. Microsurgical dissection for degenerative disk disease with severe facet arthropathy and spinal stenosis on 12/04/17. Mr. White's surgery went well. His postoperative pain was controlled. He will be discharged to SNF in stable conditions. - Time Spent with Patient Total time spent providing and/or coordinating discharge services: Less than 30 minutes - Quality: VTE Deep Vein Thrombosis/Pulmonary Embolism Present on Admission: No Exam Vital signs: Vital Signs 12/06/17 16:00 12/06/17 20:29 12/06/17 23:19 Temperature 99.2 F 97.8 F 98.6 F Pulse Rate 118 H 115 H 106 H Respiratory Rate 18 18 18 Blood Pressure 130/70 134/68 126/77 Pulse Oximetry 96 97 97 12/07/17 03:20 12/07/17 06:33 12/07/17 08:00 Temperature 98.0 F 98.6 F Pulse Rate 101 H 101 H Respiratory Rate 18 18 17 Blood Pressure 126/77 127/77 Pulse Oximetry 98 95 Intake & Output 12/06/17 12/07/17 12/07/17 18:59 06:59 18:59 Intake Total 1650 / 1650 480 / 480 Output Total 105 / 105 770 / 770 Balance 1545 / 1545 -290 / -290 Weight 123 kg Intake: IV 1000 / 1000 NS Inj 1,000 ML @ 100 mls/hr IV 1000 / 1000 .SIG .Q10H [facility] Rx#:[id number] Oral 650 / 650 480 / 480 Output: Urine 650 / 650 Wound Drainage 105 / 105 120 / 120 Medial Back 105 / 105 120 / 120 Other: Date of Last Bowel Movement 12/03/17 12/03/17 # Bowel Movements 0 Results Procedures completed during hospitalization: L2-3, L3-4, L4-L5 laminectomy, interbody arthrodhesis using PEEK cage and autologous bone graft, L2-3, L3-4, L4-L5 instrumental fixation using transpedicular screws and rods, L2-L3,L3-4, L4-L5 posterolateral fusion using autologous bone graft and demineralized bone matrix. Microsurgical dissection Labs on day of discharge: Labs from last 24 hours 12/07/17 12/07/17 12/06/17 11:29 06:02 23:18 POC Glucose 149 H 159 H 167 H 12/06/17 17:25 POC Glucose 162 H - Impressions ITS Impressions Lumbar Spine X-Ray 12/04/17 00:00 CONCLUSION: Intraoperative images. Discharge Plan - Discharge Disposition Patient Disposition: 03 Discharge to SNF - Discharge Condition Condition: Stable - Discharge Order Discharge Orders: Discharge Order (Routine); Ordered 12/07/17 Ordered By: Maryjane Tobin - Physicians Team Primary Care Provider: [facility],Physician 's Attending Provider: Jatin Alfaro Other Providers: Eduardo Garcia DO ; [facility] - Rxs /Orders / Referrals /Forms Prescriptions: New hydrocodone-acetaminophen 10-325 mg Tablet 2 tab PO Q4-6H PRN (Reason: Pain Scale 6 To 10) 3 Days Qty: 15 RF: 0 Continue allopurinol 100 mg Tablet 100 mg PO DAILY amlodipine 10 mg Tablet 10 mg PO DAILY aspirin [Aspirin Low Dose] 81 mg Tablet,Delayed Release (Dr/Ec) 81 mg PO DAILY baclofen 10 mg Tablet 10 mg PO TID PRN (Reason: Pain) cholecalciferol (vitamin D3) [Vitamin D3] 1,000 unit Capsule 1,000 unit PO DAILY ferrous sulfate [Iron (ferrous sulfate)] 325 mg (65 mg iron) Tablet 325 mg PO DAILY glipizide 10 mg Tablet 10 mg PO DAILY hydralazine 10 mg Tablet 10 mg PO BID hydrochlorothiazide 25 mg Tablet 25 mg PO DAILY insulin NPH isoph U-100 human [Humulin N NPH U-100 Insulin] 100 unit/mL Suspension 15 unit SUB-Q QPM lisinopril 40 mg Tablet 40 mg PO DAILY omeprazole 20 mg Tablet,Delayed Release (Dr/Ec) 20 mg PO DAILY ranitidine HCl 150 mg Capsule 150 mg PO DAILY saw palmetto 160 mg Capsule 320 mg PO DAILY tramadol 50 mg Tablet 50 mg PO Q6H PRN (Reason: Pain) trazodone 50 mg Tablet 50 mg PO HS vitamin B complex [B-Complex] Tablet 1 tab PO DAILY Discontinued meloxicam 15 mg Tablet 15 mg PO DAILY Ambulatory Orders / Order Sets / DME: Hospital Bed - Manual (1 each) (Routine) Location: Determined by Patient Ordered By: Maryjane Tobin Referrals: [facility],Physician [facility] [Primary Care Provider] - See Instructions - Discharge Instructions Patient Printed Instructions: Laminectomy (DC)
--- NOTE | 2017-12-07 16:42 | P.PNNS ---
Subjective Interval history: 12/07: feeling well, ready for discharge to rehab today. Physical Exam Vital signs: Vital Signs 12/06/17 20:29 12/06/17 23:19 12/07/17 03:20 Temperature 97.8 F 98.6 F 98.0 F Pulse Rate 115 H 106 H 101 H Respiratory Rate 18 18 18 Blood Pressure 134/68 126/77 126/77 Pulse Oximetry 97 97 98 12/07/17 06:33 12/07/17 08:00 12/07/17 12:00 Temperature 98.6 F 98.4 F Pulse Rate 101 H 96 H Respiratory Rate 18 17 17 Blood Pressure 127/77 129/79 Pulse Oximetry 95 97 Intake & Output 12/06/17 12/07/17 12/07/17 18:59 06:59 18:59 Intake Total 1650 / 1650 480 / 480 Output Total 105 / 105 770 / 770 Balance 1545 / 1545 -290 / -290 Weight 123 kg Intake: IV 1000 / 1000 NS Inj 1,000 ML @ 100 mls/hr IV 1000 / 1000 .SIG .Q10H [facility] Rx#:[id number] Oral 650 / 650 480 / 480 Output: Urine 650 / 650 Wound Drainage 105 / 105 120 / 120 Medial Back 105 / 105 120 / 120 Other: Date of Last Bowel Movement 12/03/17 12/03/17 # Bowel Movements 0 Narrative: awake, alert speech fluent pupils equal, facial motor symmetric 5/5 LE strength plantars flexors b/l - Urinary Catheter Management Indwelling Urethral Catheter Cath placed during this visit: yes, but has since been removed by the nurse Reason for continuing: Hourly intake/output Insertion date: 12/04/17 Insertion time: 13:48 Removal date: 12/06/17 Removal time: 10:55 Assessment and Plan - Plan Impression: 67 y/o male s/p L2-3, L3-4, L4-L5 laminectomy, interbody arthrodhesis using PEEK cage and autologous bone graft, L2-3, L3-4, L4-L5 instrumental fixation using transpedicular screws and rods, L2-L3,L3-4, L4-L5 posterolateral fusion using autologous bone graft and demineralized bone matrix. Microsurgical dissection on 12/04/17 Plan: cont postoperative care IS every hour scds and teds, protonix, cont sq lovenox PT, mobilize with TLSO dc LOLA drain case mgt for dc planning to [place] [facility] when bed available
== END 2017-12-07 17:28 ==
LOC: HSDI 09:52 → N03 22:23 → N06 12-05 16:07
PROVIDERS: ADMIT Neurological Surgery; ATTEND Neurological Surgery